=== PATIENT | male | born 1990 | race American Indian/Alaskan Native ===

== ENCOUNTER 2020-05-02 21:28 | Emergency (ER) | payer SELFPAY ==
[2020-05-02 22:04] VITALS: BP 110/58
== END 2020-05-03 01:46 | disposition home or self-care (01) ==
LOC: ED 21:28
DX: S83.92XA Sprain of unspecified site of left knee, initial encounter (principal); S00.83XA Contusion of other part of head, initial encounter; M62.830 Muscle spasm of back; X58.XXXA Exposure to other specified factors, initial encounter; Y93.89 Activity, other specified; Y92.89 Other specified places as the place of occurrence of the external cause; Y99.8 Other external cause status
CPT/HCPCS: 70486; 72100

== ENCOUNTER 2020-06-08 10:24 | Emergency (ER) | payer SELFPAY ==
[2020-06-08 10:30] VITALS: BP 126/79
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
== END 2020-06-08 12:45 | disposition left against medical advice (07) ==
LOC: ED 10:24
DX: K08.89 Other specified disorders of teeth and supporting structures (principal); Z53.21 Procedure and treatment not carried out due to patient leaving prior to being seen by health care provider